=== PATIENT | male | born 1970 | race Caucasian/White ===

== ENCOUNTER 2020-07-01 14:53 | Emergency (ER) | payer BC ==
[2020-07-01] MEDS ORDERED: cloNIDine 0.1 MG Tab PO ONE (15:21)
--- NOTE | 2020-07-01 16:21 | EDM.PDOC ---
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, he would do a measurement and then forget the figure which he thought was d/t the medication smokes 1 ppd, drinks 6-8 beers/d has seen both Dr Velasco and Dr Ramírez in the past both his parents have CAD at ages 45-55 is at bedside pt given copy of his EKG and his CxR which suggests COPD BP 219/121 on arrival at ED, then came down to 188/110 and 183/103 give clonidine 0.1 mg x 1 - Related Data Allergies Allergy/AdvReac Type Severity Reaction Status Date / Time No Known Allergies Allergy Verified 07/01/20 14:58 Home Meds: Home Meds amLODIPine [Norvasc] 5 mg PO DAILY #14 tab 07/01/20 [Rx] ED ROS GENERAL - Review of Systems Review Of Systems: See Below Constitutional: Reports: No Symptoms HEENT: Reports: No Symptoms Respiratory: Reports: No Symptoms Cardiovascular: Reports: No Symptoms Endocrine: Reports: No Symptoms GI/Abdominal: Reports: No Symptoms : Reports: No Symptoms Musculoskeletal: Reports: No Symptoms Skin: Reports: No Symptoms Neurological: Reports: No Symptoms Psychiatric: Reports: No Symptoms Hematologic/Lymphatic: Reports: No Symptoms Immunologic: Reports: No Symptoms ED EXAM, GENERAL - Physical Exam Exam: See Below Exam Limited By: No Limitations General Appearance: Alert, WD/WN, No Apparent Distress Ears: Hearing Grossly Normal Nose: Normal Inspection, Normal Mucosa, No Blood Throat/Mouth: Normal Inspection, Normal Voice, No Airway Compromise Head: Atraumatic, Normocephalic Neck: Normal Inspection, Supple, Non-Tender, Full Range of Motion. No: Lymphadenopathy (R), Lymphadenopathy (L) Respiratory/Chest: No Respiratory Distress, Lungs Clear, Normal Breath Sounds, No Accessory Muscle Use, Chest Non-Tender Cardiovascular: Regular Rate, Rhythm, No Edema, No Gallop, No JVD, No Murmur, No Rub GI/Abdominal: Soft, Non-Tender, No Distention Back Exam: Normal Inspection, Full Range of Motion. No: CVA Tenderness (R), CVA Tenderness (L) Extremities: Normal Inspection, Normal Range of Motion, Non-Tender, No Pedal Edema Neurological: Alert, Oriented, CN II-XII Intact, Normal Cognition, No Motor/Sensory Deficits Psychiatric: Normal Affect, Normal Mood Skin Exam: Warm, Dry, Intact, Normal Color, No Rash Lymphatic: No Adenopathy Course - Vital Signs Last Recorded V/S: Last Vital Signs Temp 36.8 C 07/01/20 14:53 Pulse 73 07/01/20 15:07 Resp 18 07/01/20 15:07 BP 183/103 H 07/01/20 15:27 Pulse Ox 99 07/01/20 15:07 - Orders/Labs/Meds Orders: Active Orders 24 hr Category Date Time Status TROPONIN I [CHEM] Stat Lab 07/01/20 15:56 Ordered TSH ULTRASENSITIVE [CHEM] Stat Lab 07/01/20 15:54 Ordered UA W/MICROSCOPIC [URIN] Stat Lab 07/01/20 15:54 Ordered Meds: Medications Discontinued Medications Generic Name Dose Route Start Last Admin Trade Name [place] PRN Reason Stop Dose Admin Clonidine HCl 0.1 mg 07/01/20 15:21 07/01/20 15:27 Catapres PO 07/01/20 15:22 0.1 mg ONETIME ONE Administration - Re-Assessments/Exams Free Text/Narrative Re-Assessment/Exam: 07/01/20 17:12 BP came down to 164/102 after clonidine 0.1 mg, pt given an additional amlodipine 2.5 mg at time of d/c as it is longer acted, with plan to begin amlodipine 5 mg daily tomorrow present for instructions need to decrease/stop alcohol and cigs was discussed need to decrease glucose in his diet was discussed strong FH CAD is concerning pt agrees to f/u with PCP Departure - Departure Time of Disposition: 17:00 Disposition: Home, Self-Care 01 Condition: Good Clinical Impression: Elevated blood pressure reading with diagnosis of hypertension, Elevated serum creatinine, Asymptomatic hypertensive urgency, Hyperglycemia, Cigarette smoker, Daily consumption of alcohol Prescriptions: amLODIPine [Norvasc] 5 mg PO DAILY #14 tab Instructions: Hypertension, Adult, Managing Your Hypertension, Hyperglycemia, Steps to Quit Smoking Additional Instructions: For blood pressure, begin amlodipine 5 mg 1 tab daily in the morning. For increased blood sugar or glucose, a 3-month average glucose test called a glycosylated hemoglobin was ordered. See your doctor in one week for further instructions. While it is expected to be slightly fatigued for one week, call or return to E mergency Department if you develop new symptoms. Sepsis Event Note (ED) - Evaluation Sepsis Screening Result: No Definite Risk - Focused Exam Vital Signs: Vital Signs Temp Pulse Resp BP BP Pulse Ox 07/01/20 15:27 183/103 H 07/01/20 15:07 73 18 188/110 H 99 07/01/20 14:53 36.8 C 84 18 219/121 H 98 - My Orders Last 24 Hours: My Active Orders 07/01/20 15:54 TSH ULTRASENSITIVE [CHEM] Stat UA W/MICROSCOPIC [URIN] Stat 07/01/20 15:56 TROPONIN I [CHEM] Stat - Assessment/Plan Last 24 Hours: My Active Orders 07/01/20 15:54 TSH ULTRASENSITIVE [CHEM] Stat UA W/MICROSCOPIC [URIN] Stat 07/01/20 15:56 TROPONIN I [CHEM] Stat
[2020-07-01] MEDS ORDERED: amLODIPine 2.5 MG Tab PO ONE (17:02)
[2020-07-01 17:16] LABS: HEMOGLOBIN A1C 5.7 % (<5.7)
== END 2020-07-01 17:37 | disposition home or self-care (01) ==
LOC: FB.ED 14:53
DX: I16.0 Hypertensive urgency (principal); R74.8 Abnormal levels of other serum enzymes; R73.9 Hyperglycemia, unspecified; F17.210 Nicotine dependence, cigarettes, uncomplicated; Z72.89 Other problems related to lifestyle; Z79.899 Other long term (current) drug therapy
CPT/HCPCS: 36415; 81001; 83036; 84443; 84484; 99283; A9270-GY

== ENCOUNTER 2021-03-27 15:58 | Emergency (ER) | payer BC ==
[2021-03-27] MEDS ORDERED: Acetaminophen/oxyCODONE 325-5 MG Tab PO ONE (15:59)
--- NOTE | 2021-03-27 16:03 | EDM.PDOC ---
ED HPI GENERAL MEDICAL PROBLEM - General Chief Complaint: General Stated Complaint: BROKEN TOOTH Time Seen by Provider: 03/27/21 16:03 Source of Information: Reports: Patient History Limitations: Reports: No Limitations - History of Present Illness INITIAL COMMENTS - FREE TEXT/NARRATIVE: 51-year-old male who reports he has had some intermittent problems with his right lower a molar for some time. He reports a filling came out sometime in the past and he has had some mild discomfort in this area off and on for the past few months. Last night he was in bed and he awoke with pain in his right lower posterior molar and it was more severe than it has been in the past. He seemed to be okay this morning but while eating Thanksgiving meal at around lunchtime, he had marked increase in the pain. He reports pain as a 9-10/10 and it is "off the charts" when he tries to put pressure on the tooth. He reports the pain radiates all over the right side of his face and head. It is a sharp and throbbing/aching pain. He has tried Orajel and ibuprofen and Tylenol without any relief of his pain he also has some pain in goes into his right anterior neck as well. No fevers or chills. He is swallowing okay. No difficulty breathing. There are no other associated signs or symptoms. There are no other modifying factors. Onset: Other (Off and on for some time but acute worsening last night and through today.) Duration: Getting Worse Location: Reports: Other (Right lower dental pain) Quality: Reports: Ache, Sharp, Throbbing Severity: Severe Improves with: Reports: Rest Worsens with: Reports: Eating, Other (Putting pressure on the tooth. They're hitting the tooth.) Context: Reports: Other (As above.) Associated Symptoms: Reports: No Other Symptoms (Except as above.) Treatments BED TEACHER: Reports: Acetaminophen, NSAIDS, Other (see below) Other Treatments BED TEACHER: ambisol, orijel tooth Pain Score (Numeric/FACES): 9 - Related Data Allergies Allergy/AdvReac Type Severity Reaction Status Date / Time No Known Allergies Allergy Verified 03/27/21 16:03 Home Meds: Home Meds Acetaminophen/HYDROcodone [HYDROcodone-Acetaminophen 5-325 MG *] 1 - 2 tab PO Q6H PRN #8 each 03/27/21 [Rx] Amoxicillin/Clavulanate K [Augmentin 875-125 MG] 1 tab PO BID 10 Days #20 tablet 03/27/21 [Rx] Losartan Potassium [Cozaar] 100 mg PO BEDTIME 03/27/21 [History] amLODIPine Besylate [Amlodipine Besylate] 10 mg PO BEDTIME 03/27/21 [History] atorvaSTATin [Lipitor] 20 mg PO BEDTIME 03/27/21 [History] Past Medical History Cardiovascular History: Reports: High Cholesterol, Hypertension - Infectious Disease History Infectious Disease History: Reports: None - Past Surgical History HEENT Surgical History: Reports: Oral Surgery ([place] teeth extraction) GI Surgical History: Reports: Appendectomy Social & Family History - Tobacco Use Tobacco Use Status *Q: Current Every Day Tobacco User - Caffeine Use Caffeine Use: Reports: Coffee - Alcohol Use Alcohol Use History: Yes Alcohol Use Frequency: Daily - Living Situation & Occupation Living situation: Reports: , with Spouse Occupation: Employed (Works construction.) ED ROS GENERAL - Review of Systems Review Of Systems: See Below Constitutional: Denies: Fever, Chills HEENT: Reports: Dental Pain. Denies: Throat Swelling Respiratory: Denies: Shortness of Breath, Cough Cardiovascular: Denies: Chest Pain, Palpitations GI/Abdominal: Denies: Nausea, Vomiting Musculoskeletal: Reports: Neck Pain. Denies: Back Pain Skin: Denies: Diaphoresis, Rash, Wound Neurological: Reports: Headache. Denies: Dizziness Psychiatric: Denies: Anxiety Hematologic/Lymphatic: Denies: Easy Bleeding, Easy Bruising ED EXAM, GENERAL - Physical Exam Exam: See Below Exam Limited By: No Limitations General Appearance: Alert, WD/WN, Moderate Distress (Appears in some pain. Otherwise nontoxic.) Eye Exam: Bilateral Eye: EOMI, Normal Inspection, PERRL Ears: Normal External Exam, Hearing Grossly Normal Ear Exam: Bilateral Ear: Auricle Normal Nose: Normal Inspection, Normal Mucosa, No Blood Throat/Mouth: Normal Voice, No Airway Compromise, Other (Poor dentition. Gingival erythema around his right lower posterior molar. No pointing abscess.) Head: Atraumatic, Normocephalic Neck: Supple, Full Range of Motion, Lymphadenopathy (R) Respiratory/Chest: No Respiratory Distress, Lungs Clear, Normal Breath Sounds, No Accessory Muscle Use, Chest Non-Tender Cardiovascular: Normal Peripheral Pulses, Regular Rate, Rhythm, No Edema Peripheral Pulses: 2+: Radial (L), Radial (R), Dorsalis Pedis (L), Dorsalis Pedis (R) GI/Abdominal: Normal Bowel Sounds, Soft, Non-Tender Back Exam: Normal Inspection, Full Range of Motion Extremities: Normal Inspection, Normal Range of Motion, Non-Tender, No Pedal Edema, Normal Capillary Refill Neurological: Alert, Oriented, CN II-XII Intact, Normal Cognition, No Motor/Sensory Deficits Psychiatric: Normal Affect Skin Exam: Warm, Dry, Intact, Normal Color, No Rash Course - Vital Signs Last Recorded V/S: Last Vital Signs Temp 36.9 C 03/27/21 16:00 Pulse 84 03/27/21 16:00 Resp 18 03/27/21 16:00 BP 151/87 H 03/27/21 16:00 Pulse Ox 97 03/27/21 16:00 - Orders/Labs/Meds Meds: Medications Discontinued Medications Generic Name Dose Route Start Last Admin Trade Name Freq PRN Reason Stop Dose Admin Amoxicillin/Clavulanate Potassium 1 tab 03/27/21 16:17 03/27/21 16:27 Amoxicillin/Clavulanate K 875-125 Mg Tab PO 03/27/21 16:18 1 tab ONETIME ONE Administration Oxycodone HCl 10 mg 03/27/21 16:17 03/27/21 16:27 Oxycodone 5 Mg Tab PO 03/27/21 16:18 10 mg ONETIME ONE Administration - Re-Assessments/Exams Free Text/Narrative Re-Assessment/Exam: 03/27/21 16:18: Patient with carious dentition and some gingival erythema around the right lower posterior molar. The tooth is very sensitive to touch. He has some tenderness in his right anterior cervical chain the patient will be given oxycodone 10 mg orally (he took Tylenol 975 mg at 2 PM). I will also give the patient Augmentin 875 mg orally now. I will send a prescription for Augmentin to his pharmacy. I will give him a take-home pack of hydrocodone 5/325 and a prescription for an additional 8. He is advised to see a dentist as soon as he can arrange. Departure - Departure Time of Disposition: 16:27 Disposition: Home, Self-Care 01 Condition: Good Clinical Impression: Pain, dental, Dental infection, Dental caries - Discharge Information *PRESCRIPTION DRUG MONITORING PROGRAM REVIEWED*: Yes (No record of any controlled substance prescriptions.) *COPY OF PRESCRIPTION DRUG MONITORING REPORT IN PATIENT NAIN: No Prescriptions: Amoxicillin/Clavulanate K [Augmentin 875-125 MG] 1 tab PO BID 10 Days #20 tablet Acetaminophen/HYDROcodone [HYDROcodone-Acetaminophen 5-325 MG *] 1 - 2 tab PO Q6H PRN #8 each PRN Reason: Moderate to severe pain Instructions: Dental Abscess, [id number], Dental Caries, Adult, [id number], Dental Pain, [id number] Referrals: PCP,None [Primary Care Provider] - Forms: ED Department Discharge Additional Instructions: You do have a cracked and decayed right lower posterior molar. There is most probably an infection associated with this tooth as well. You need to see a dentist as soon as you can arrange. Medications as prescribed (Augmentin 875 mg, hydrocodone 5/325). You can take ibuprofen 800 mg by mouth every 8 hours as needed for pain. You can also apply Orajel to the painful tooth area. Back to the emergency department for difficulty swallowing, difficulty breathing, high fever, unrelenting vomiting or any other concerning signs or symptoms. Sepsis Event Note (ED) - Evaluation Sepsis Screening Result: No Definite Risk - Focused Exam Vital Signs: Vital Signs Temp Pulse Resp BP Pulse Ox 03/27/21 16:00 36.9 C 84 18 151/87 H 97
[2021-03-27] MEDS ORDERED: Amoxicillin/Clavulanate K 875-125 MG Tab PO ONE (16:17)
[2021-03-27] MEDS ORDERED: oxyCODONE 5 MG Tab PO ONE (16:17)
== END 2021-03-27 16:40 | disposition home or self-care (01) ==
LOC: FB.ED 15:58
DX: K04.7 Periapical abscess without sinus (principal); K02.9 Dental caries, unspecified; E78.00 Pure hypercholesterolemia, unspecified; I10 Essential (primary) hypertension; Z72.0 Tobacco use; Z79.899 Other long term (current) drug therapy
CPT/HCPCS: 99283; A9270-GY